=== PATIENT | male | born 1960 | race Caucasian/White ===

== ENCOUNTER 2018-01-07 13:46 | Inpatient (IN) | payer OTHER ==
[2018-01-07 15:55] LABS: ADD MAN DIFF? NO
[2018-01-07 16:29] LABS: ANION GAP 16 (8-16); BLOOD UREA NITROGEN 6 mg/dl (7-20); CALCIUM 8.5 mg/dl (8.4-10.2); CARBON DIOXIDE 26 mmol/L (21-31); CHLORIDE 68 mmol/L (97-110); CREATININE 0.76 mg/dl (0.61-1.24); GLUCOSE 129 mg/dl (70-220)
[2018-01-07 16:33] LABS: SODIUM 107 mmol/L (135-144)
[2018-01-07 16:41] LABS: TROPONIN-I < 0.012 ng/ml (0.00-0.12)
[2018-01-07 16:52] LABS: BASOPHIL # 0.1 10^3/ul (0.0-0.1); BASOPHILS % 0.4 % (0.0-2.0); EOSINOPHILS % 0.2 % (0.0-7.0); HEMOGLOBIN 14.8 g/dl (14.0-18.0); LYMPHOCYTES # 2.4 10^3/ul (0.8-2.9); LYMPHOCYTES % 16.7 % (15.0-51.0); MEAN CORPUSCULAR HEMOGLOBIN 32.6 pg (29.0-33.0); MEAN CORPUSCULAR VOLUME 84.6 fl (82.0-101.0); MEAN PLATELET VOLUME 8.6 fl (7.4-10.4); MONOCYTE # 1.4 10^3/ul (0.3-0.9); NEUTROPHIL # 10.1 10^3/ul (1.6-7.5); NEUTROPHILS % 71.8 % (39.0-77.0); PLATELET COUNT 313 10^3/UL (140-415); POSITIVE DIFF @See below; RED BLOOD COUNT 4.54 10^6/ul (4.70-6.10); RED CELL DISTRIBUTION WIDTH 11.6 % (11.5-14.5)
[2018-01-07 16:53] LABS: MEAN CORPUSCULAR HGB CONC 38.5 g/dl (32.0-37.0)
[2018-01-07 16:54] LABS: HEMATOCRIT 38.4 % (42.0-52.0)
[2018-01-07] MEDS: SOD CHLORIDE 0.9% 1,000 ML IV ×2 (17:00→20:28)
[2018-01-07] MEDS ORDERED: NACL 3% 150 ML IV (17:00)
[2018-01-07] MEDS: POTASSIUM CHLORIDE (SR) 20 MEQ TAB PO ×3 (17:24→18:54)
[2018-01-07 18:04] LABS: PHOSPHORUS 2.8 mg/dl (2.5-4.9)
[2018-01-07 18:04] LABS: ANION GAP 15 (8-16); BLOOD UREA NITROGEN 6 mg/dl (7-20); CALCIUM 8.4 mg/dl (8.4-10.2); CARBON DIOXIDE 24 mmol/L (21-31); CHLORIDE 71 mmol/L (97-110); CREATININE 0.67 mg/dl (0.61-1.24); GLUCOSE 136 mg/dl (70-220); MAGNESIUM 1.9 mg/dl (1.7-2.5)
[2018-01-07 18:08] LABS: SODIUM 107 mmol/L (135-144)
[2018-01-07 18:09] LABS: POTASSIUM 2.9 mmol/L (3.5-5.1)
[2018-01-07 18:27] LABS: ADD UMIC NO; UR ASCORBIC ACID NEGATIVE (NEGATIVE); UR BILIRUBIN (Dip) NEGATIVE (NEGATIVE); UR BLOOD (Dip) NEGATIVE (NEGATIVE); UR CLARITY CLEAR (CLEAR); UR COLOR STRAW (YELLOW); UR GLUCOSE (Dip) NEGATIVE (NEGATIVE); UR KETONES (Dip) NEGATIVE (NEGATIVE); UR LEUKOCYTE ESTERASE (Dip) NEGATIVE Leu/ul (NEGATIVE); UR NITRITE (Dip) NEGATIVE (NEGATIVE); UR SPECIFIC GRAVITY (Dip) 1.002 (1.003-1.030); UR TOTAL PROTEIN (Dip) NEGATIVE (NEGATIVE); UR UROBILINOGEN (Dip) NEGATIVE (NEGATIVE)
[2018-01-07 18:35] LABS: SODIUM,URINE RANDOM 25 mmol/L (30-90)
[2018-01-07 18:35] LABS: POTASSIUM,URINE RANDOM 11.3 mmol/L (25-125)
[2018-01-07] MEDS ORDERED: NACL 0.9% 3 ML SYG IV (19:00)
[2018-01-07] MEDS: SOD CHLORIDE 0.9% 500 ML IV (19:11)
[2018-01-07 19:13] LABS: OSMOLALITY,URINE 118 mOsm/kg (250-1200)
[2018-01-07 19:19] LABS: OSMOLALITY 216 mOsm/kg (280-295)
[2018-01-07 19:36] LABS: BLOOD UREA NITROGEN 6 mg/dl (7-20); CALCIUM 8.6 mg/dl (8.4-10.2); CARBON DIOXIDE 26 mmol/L (21-31); CREATININE 0.64 mg/dl (0.61-1.24); GLUCOSE 125 mg/dl (70-220); POTASSIUM 3.2 mmol/L (3.5-5.1)
[2018-01-07 19:40] LABS: ANION GAP 14 (8-16); CHLORIDE 72 mmol/L (97-110)
[2018-01-07 19:44] LABS: SODIUM 109 mmol/L (135-144)
[2018-01-07 20:25] LABS: OSMOLALITY 216 mOsm/kg (280-295)
[2018-01-07 20:32] LABS: OSMOLALITY,URINE 80 mOsm/kg (250-1200)
[2018-01-08 01:13] LABS: BLOOD UREA NITROGEN 6 mg/dl (7-20); CALCIUM 8.3 mg/dl (8.4-10.2); CARBON DIOXIDE 22 mmol/L (21-31); CHLORIDE 80 mmol/L (97-110); CREATININE 0.65 mg/dl (0.61-1.24); GLUCOSE 130 mg/dl (70-220); POTASSIUM 3.5 mmol/L (3.5-5.1)
[2018-01-08 01:16] LABS: ANION GAP 14 (8-16); SODIUM 112 mmol/L (135-144)
[2018-01-08] MEDS: SOD CHLORIDE 0.9% 1,000 ML IV (04:39)
[2018-01-08 05:36] LABS: ANION GAP 13 (8-16); BLOOD UREA NITROGEN 5 mg/dl (7-20); CALCIUM 8.6 mg/dl (8.4-10.2); CARBON DIOXIDE 26 mmol/L (21-31); CHLORIDE 85 mmol/L (97-110); CREATININE 0.78 mg/dl (0.61-1.24); GLUCOSE 101 mg/dl (70-220)
[2018-01-08 06:03] LABS: SODIUM 120 mmol/L (135-144)
[2018-01-08] MEDS: DEXTROSE 5% 1,000 ML IV (07:48)
[2018-01-08 08:40] LABS: ANION GAP 13 (8-16); BLOOD UREA NITROGEN 6 mg/dl (7-20); CALCIUM 8.5 mg/dl (8.4-10.2); CARBON DIOXIDE 26 mmol/L (21-31); CHLORIDE 84 mmol/L (97-110); CREATININE 0.78 mg/dl (0.61-1.24); GLUCOSE 168 mg/dl (70-220); POTASSIUM 4.1 mmol/L (3.5-5.1)
[2018-01-08 08:49] LABS: SODIUM 119 mmol/L (135-144)
[2018-01-08] MEDS: ENOXAPARIN 40 MG/0.4 ML SYG SC (09:11)
[2018-01-08 09:38] LABS: OSMOLALITY 242 mOsm/kg (280-295)
[2018-01-08 13:44] LABS: ANION GAP 13 (8-16); BLOOD UREA NITROGEN 7 mg/dl (7-20); CALCIUM 8.2 mg/dl (8.4-10.2); CARBON DIOXIDE 25 mmol/L (21-31); CHLORIDE 84 mmol/L (97-110); CREATININE 0.78 mg/dl (0.61-1.24); GLUCOSE 128 mg/dl (70-220); POTASSIUM 3.3 mmol/L (3.5-5.1)
[2018-01-08 13:49] LABS: SODIUM 119 mmol/L (135-144)
[2018-01-08] MEDS: SOD CHLORIDE 0.45% 1,000 ML IV (14:49)
[2018-01-08] MEDS: POTASSIUM CHLORIDE (SR) 20 MEQ TAB PO (14:52)
[2018-01-09] MEDS: SOD CHLORIDE 0.45% 1,000 ML IV ×2 (04:15→16:54)
[2018-01-09 05:20] LABS: ADD MAN DIFF? NO
[2018-01-09 05:45] LABS: ALANINE AMINOTRANSFERASE 34 IU/L (13-69); ALBUMIN 3.4 g/dl (3.3-4.9); ALBUMIN/GLOBULIN RATIO 1.41; ALKALINE PHOSPHATASE 67 IU/L (42-121); ANION GAP 14 (8-16); ASPARTATE AMINO TRANSFERASE 34 IU/L (15-46); BILIRUBIN,INDIRECT 0.7 mg/dl (0-1.1); BILIRUBIN,TOTAL 0.7 mg/dl (0.2-1.3); BLOOD UREA NITROGEN 4 mg/dl (7-20); CALCIUM 8.3 mg/dl (8.4-10.2); CARBON DIOXIDE 24 mmol/L (21-31); CHLORIDE 91 mmol/L (97-110); CREATININE 0.69 mg/dl (0.61-1.24); GLUCOSE 124 mg/dl (70-220); PHOSPHORUS 2.5 mg/dl (2.5-4.9); POTASSIUM 3.8 mmol/L (3.5-5.1); SODIUM 125 mmol/L (135-144); TOTAL PROTEIN 5.8 g/dl (6.1-8.1)
[2018-01-09 07:50] LABS: BASOPHIL # 0.1 10^3/ul (0.0-0.1); BASOPHILS % 0.4 % (0.0-2.0); EOSINOPHILS % 0.3 % (0.0-7.0); HEMATOCRIT 37.6 % (42.0-52.0); HEMOGLOBIN 13.5 g/dl (14.0-18.0); LYMPHOCYTES # 2.2 10^3/ul (0.8-2.9); LYMPHOCYTES % 18.5 % (15.0-51.0); MEAN CORPUSCULAR HEMOGLOBIN 32.7 pg (29.0-33.0); MEAN CORPUSCULAR HGB CONC 35.9 g/dl (32.0-37.0); MEAN PLATELET VOLUME 8.3 fl (7.4-10.4); MONOCYTE # 1.4 10^3/ul (0.3-0.9); MONOCYTES % 12.3 % (0.0-11.0); NEUTROPHIL # 7.9 10^3/ul (1.6-7.5); NEUTROPHILS % 67.9 % (39.0-77.0); PLATELET COUNT 298 10^3/UL (140-415); RED BLOOD COUNT 4.13 10^6/ul (4.70-6.10); RED CELL DISTRIBUTION WIDTH 12.5 % (11.5-14.5)
[2018-01-09 07:50] LABS: WHITE BLOOD COUNT 11.7 10^3/ul (4.8-10.8)
[2018-01-09] MEDS: ENOXAPARIN 40 MG/0.4 ML SYG SC (08:09)
[2018-01-09 10:18] LABS: SODIUM,URINE RANDOM < 13 mmol/L (30-90)
[2018-01-09 11:27] LABS: OSMOLALITY,URINE 95 mOsm/kg (250-1200)
[2018-01-10 06:32] LABS: ANION GAP 12 (8-16); BLOOD UREA NITROGEN 6 mg/dl (7-20); CALCIUM 8.2 mg/dl (8.4-10.2); CARBON DIOXIDE 26 mmol/L (21-31); CHLORIDE 94 mmol/L (97-110); CREATININE 0.73 mg/dl (0.61-1.24); GLUCOSE 112 mg/dl (70-220); POTASSIUM 3.6 mmol/L (3.5-5.1); SODIUM 128 mmol/L (135-144)
[2018-01-10] MEDS: SOD CHLORIDE 0.45% 1,000 ML IV ×2 (09:18→13:30)
[2018-01-10] MEDS: ENOXAPARIN 40 MG/0.4 ML SYG SC (09:21)
[2018-01-11] MEDS: SOD CHLORIDE 0.45% 1,000 ML IV ×2 (01:30→02:50)
[2018-01-11] MEDS: ENOXAPARIN 40 MG/0.4 ML SYG SC (08:16)
[2018-01-11 13:04] LABS: ANION GAP 18 (8-16); BLOOD UREA NITROGEN 5 mg/dl (7-20); CALCIUM 8.7 mg/dl (8.4-10.2); CARBON DIOXIDE 23 mmol/L (21-31); CHLORIDE 95 mmol/L (97-110); CREATININE 0.68 mg/dl (0.61-1.24); GLUCOSE 79 mg/dl (70-220); POTASSIUM 3.6 mmol/L (3.5-5.1); SODIUM 132 mmol/L (135-144)
== END 2018-01-11 14:42 | disposition home or self-care (01) | DRG 640 ==
LOC: MS1 01-09 15:14 → E/R 13:46 → MS1 01-09 15:15 → ICU 18:38
DX: E87.1 Hypo-osmolality and hyponatremia (principal); G93.41 Metabolic encephalopathy; E11.9 Type 2 diabetes mellitus without complications; I10 Essential (primary) hypertension; Z72.0 Tobacco use; E87.6 Hypokalemia; R07.9 Chest pain, unspecified; Z79.899 Other long term (current) drug therapy
CPT/HCPCS: 71045; 80048; 80053; 81003; 82436; 82533; 83735; 83930; 83935; 84100; 84133; 84300; 84443; 84484; 85025; 87081; 93005; 96360; 96361; 99291-25